=== PATIENT | female | born 1930 | race Asian ===

== ENCOUNTER 2018-08-07 00:09 | Emergency (ER) | payer MEDICARE, OTHER ==
[~2018-08-07] VITALS: Ht 157.5 cm; Wt 68.2 kg
[~2018-08-07 00:09] MED LIST: ALBU8HFA IH; AMLO2.5T4 PO; ATOR10TA69 PO; ETHA400 PO; FURO20 PO; IPRAHFA IH; ISON300 PO; LOSA50TA65 PO; MECL-111 PO; METO25XL PO; METO5TAB2 PO; MULT-950 PO; PYRA500 PO; RIFA300 PO; [UNRECOGNIZED DRUG - CODE] PO
[2018-08-07] MEDS ORDERED: ONDANSETRON HCL 4 MG/2 ML VIAL IVP ONE (01:00)
[2018-08-07] MEDS ORDERED: MORPHINE SULFATE 4 MG/ML SYRINGE IVP ONE (01:00)
[2018-08-07] MEDS ORDERED: LORazepam 2 MG/ML VIAL IVP ONE (01:15)
[2018-08-07 01:16] LABS: BASOPHILS % (AUTO) 0.6 % (0.0-2.0); EOSINOPHILS % (AUTO) 1.4 % (1.0-6.0); HEMATOCRIT 38.2 % (36-46); HEMOGLOBIN 13.2 g/dL (12.0-16.0); LYMPHOCYTES # (AUTO) 2.4 K/uL (1.0-4.8); LYMPHOCYTES % (AUTO) 41.4 % (22.0-44.0); MEAN CORPUSCULAR HEMOGLOBIN 31.6 pg (26.0-34.0); MEAN CORPUSCULAR HGB CONC 34.5 G/dL (31.0-37.0); MEAN CORPUSCULAR VOLUME 92 fL (80-100); MONOCYTES # (AUTO) 0.5 K/uL (0.1-1.0); MONOCYTES % (AUTO) 8.3 % (2.0-9.0); NEUTROPHILS # (AUTO) 2.8 K/uL (1.8-7.7); NEUTROPHILS % (AUTO) 48.3 % (40.0-70.0); PLATELET COUNT (AUTO) 343 K/uL (150-450); RED BLOOD CELL COUNT(AUTO) 4.16 MIL/uL (4.00-5.20); RED CELL DISTRIBUTION WIDTH 13.2 % (11.5-14.5)
[2018-08-07 01:23] LABS: CALCIUM, TOTAL 9.7 mg/dL (8.8-10.5); CREATININE 1.1 mg/dL (0.60-1.30); POTASSIUM 3.2 mmol/L (3.5-5.1)
[2018-08-07 01:28] LABS: ALBUMIN 3.6 g/dL (3.4-5.0); TOTAL PROTEIN, SERUM 7.8 g/dL (6.4-8.2)
[2018-08-07 05:39] LABS: APPEARANCE,URINE CLOUDY (CLEAR); BILIRUBIN,URINE NEGATIVE (NEGATIVE); GLUCOSE, URINE (UA) NEGATIVE (NEGATIVE); KETONES,URINE NEGATIVE (NEGATIVE); LEUKOCYTE ESTERASE ,URINE MODERATE (NEGATIVE); NITRATE,URINE POSITIVE (NEGATIVE); OCCULT BLOOD,URINE NEGATIVE (NEGATIVE); PROTEIN,URINE NEGATIVE (NEGATIVE); UROBILINOGEN,URINE 0.2 mg/dL (<=1.0)
[2018-08-07 05:58] LABS: BACTERIA,URINE Many /HPF (None Seen); RBC,URINE 0-2 /HPF (0-2); SQUAMOUS EPITHELIAL CELL,UR Few /LPF (None Seen); WBC,URINE 51-100 /HPF (0-5)
[2018-08-07] MEDS ORDERED: CefTRIAXone 1 GM/DEXTROSE 50 ML IV ONE (06:00)
[2018-08-07 06:27] VITALS: BP 159/80
== END 2018-08-07 07:12 | disposition home or self-care (01) ==
LOC: EMS 00:11
DX: N39.0 Urinary tract infection, site not specified (principal); E87.6 Hypokalemia; I11.0 Hypertensive heart disease with heart failure; I50.9 Heart failure, unspecified; F41.9 Anxiety disorder, unspecified; Z88.0 Allergy status to penicillin; Z88.6 Allergy status to analgesic agent; Z79.899 Other long term (current) drug therapy
CPT/HCPCS: 36415; 71045; 74176; 80053; 81001; 82550; 83690; 83880; 84484; 85025; 87086; 93005; 96365; 96375; 99285; J0696; J2060; J2270; J2405

== ENCOUNTER 2018-08-24 21:38 | Emergency (ER) | payer MEDICARE, OTHER ==
[~2018-08-24] VITALS: Ht 160 cm; Wt 66.1 kg
[~2018-08-24 21:38] MED LIST changes: -ETHA400 PO; -ISON300 PO; -PYRA500 PO; -RIFA300 PO
[2018-08-25 01:28] LABS: BASOPHILS % (AUTO) 0.9 % (0.0-2.0); EOSINOPHILS % (AUTO) 2.3 % (1.0-6.0); HEMATOCRIT 38.4 % (36-46); HEMOGLOBIN 13.2 g/dL (12.0-16.0); LYMPHOCYTES # (AUTO) 2.9 K/uL (1.0-4.8); LYMPHOCYTES % (AUTO) 49.2 % (22.0-44.0); MEAN CORPUSCULAR HEMOGLOBIN 31.6 pg (26.0-34.0); MEAN CORPUSCULAR HGB CONC 34.4 G/dL (31.0-37.0); MEAN CORPUSCULAR VOLUME 92 fL (80-100); MONOCYTES # (AUTO) 0.4 K/uL (0.1-1.0); MONOCYTES % (AUTO) 7.6 % (2.0-9.0); NEUTROPHILS # (AUTO) 2.3 K/uL (1.8-7.7); PLATELET COUNT (AUTO) 280 K/uL (150-450); RED BLOOD CELL COUNT(AUTO) 4.19 MIL/uL (4.00-5.20)
[2018-08-25 01:37] LABS: CALCIUM, TOTAL 10.2 mg/dL (8.8-10.5); CREATININE 1.17 mg/dL (0.60-1.30); POTASSIUM 3.4 mmol/L (3.5-5.1)
[2018-08-25 01:43] LABS: ALBUMIN 3.6 g/dL (3.4-5.0); BILIRUBIN,TOTAL 0.5 mg/dL (0.1-1.0); TOTAL PROTEIN, SERUM 7.9 g/dL (6.4-8.2)
[2018-08-25] MEDS ORDERED: LORazepam 2 MG/ML VIAL IVP ONE (01:45)
[2018-08-25 03:10] LABS: APPEARANCE,URINE CLEAR (CLEAR); BILIRUBIN,URINE NEGATIVE (NEGATIVE); GLUCOSE, URINE (UA) NEGATIVE (NEGATIVE); KETONES,URINE NEGATIVE (NEGATIVE); LEUKOCYTE ESTERASE ,URINE NEGATIVE (NEGATIVE); NITRATE,URINE NEGATIVE (NEGATIVE); OCCULT BLOOD,URINE NEGATIVE (NEGATIVE); PH,URINE 6.5 (5.0-8.0); PROTEIN,URINE NEGATIVE (NEGATIVE); UROBILINOGEN,URINE 0.2 mg/dL (<=1.0)
[2018-08-25 03:45] VITALS: BP 124/78
== END 2018-08-25 04:04 | disposition home or self-care (01) ==
LOC: EMS 21:39
DX: F03.90 Unspecified dementia, unspecified severity, without behavioral disturbance, psychotic disturbance, mood disturbance, and anxiety (principal); F41.9 Anxiety disorder, unspecified; I11.0 Hypertensive heart disease with heart failure; I50.9 Heart failure, unspecified; Z95.0 Presence of cardiac pacemaker; Z79.899 Other long term (current) drug therapy; Z88.0 Allergy status to penicillin; Z88.6 Allergy status to analgesic agent
CPT/HCPCS: 36415; 71045; 80053; 81003; 84484; 85025; 85610; 93005; 96374; 99285; J2060

== ENCOUNTER 2018-09-03 19:55 | Emergency (ER) | payer MEDICARE, OTHER ==
[~2018-09-03] VITALS: Ht 157.5 cm; Wt 71.6 kg
[2018-09-03 20:49] LABS: BASOPHILS % (AUTO) 0.4 % (0.0-2.0); EOSINOPHILS % (AUTO) 1.9 % (1.0-6.0); HEMATOCRIT 36.9 % (36-46); HEMOGLOBIN 12.8 g/dL (12.0-16.0); LYMPHOCYTES # (AUTO) 2.2 K/uL (1.0-4.8); LYMPHOCYTES % (AUTO) 39.2 % (22.0-44.0); MEAN CORPUSCULAR HEMOGLOBIN 31.8 pg (26.0-34.0); MEAN CORPUSCULAR HGB CONC 34.6 G/dL (31.0-37.0); MEAN CORPUSCULAR VOLUME 92 fL (80-100); MONOCYTES # (AUTO) 0.4 K/uL (0.1-1.0); MONOCYTES % (AUTO) 7.5 % (2.0-9.0); NEUTROPHILS # (AUTO) 2.9 K/uL (1.8-7.7); PLATELET COUNT (AUTO) 241 K/uL (150-450); RED BLOOD CELL COUNT(AUTO) 4.02 MIL/uL (4.00-5.20); RED CELL DISTRIBUTION WIDTH 14.7 % (11.5-14.5)
[2018-09-03 21:05] LABS: ALBUMIN 3.6 g/dL (3.4-5.0); BILIRUBIN,TOTAL 0.5 mg/dL (0.1-1.0); CALCIUM, TOTAL 10.1 mg/dL (8.8-10.5); CREATININE 1.04 mg/dL (0.60-1.30); TOTAL PROTEIN, SERUM 7.9 g/dL (6.4-8.2)
[2018-09-03] MEDS ORDERED: LORazepam 2 MG/ML VIAL IVP ONE (21:15)
[2018-09-03 21:47] LABS: POTASSIUM 3.8 mmol/L (3.5-5.1)
[2018-09-03 22:41] VITALS: BP 135/79
== END 2018-09-03 23:32 | disposition home or self-care (01) ==
LOC: EMS 19:56
DX: F41.9 Anxiety disorder, unspecified (principal); R06.02 Shortness of breath; E87.1 Hypo-osmolality and hyponatremia; J44.9 Chronic obstructive pulmonary disease, unspecified; I11.0 Hypertensive heart disease with heart failure; I50.9 Heart failure, unspecified; Z95.0 Presence of cardiac pacemaker; Z88.0 Allergy status to penicillin; Z88.6 Allergy status to analgesic agent; Z79.899 Other long term (current) drug therapy
CPT/HCPCS: 36415; 71045; 80053; 82550; 83605; 83880; 84484; 85025; 85610; 85730; 87040; 93005; 96374; 99285; J2060